=== PATIENT | female | born 1955 | race Two or more races ===

== ENCOUNTER 2023-09-14 16:28 | Emergency (ER) | payer OTHER, MEDICAID ==
[~2023-09-14] VITALS: Ht 157.5 cm; Wt 77.1 kg
[~2023-09-14 16:28] MED LIST: ASPI81CT95 PO; TEMA15CA24 PO; [UNRECOGNIZED DRUG - CODE] PO
[2023-09-14 16:59] VITALS: BP 146/76; PULSE 89; RESP 18; TEMP 97.5; O2SAT 97
[2023-09-14] MEDS ORDERED: HYDROcodone/APAP 10/325 MG 1 TAB TAB PO STA (17:24)
[2023-09-14] MEDS ORDERED: KETOROLAC 30 MG/ML VIAL IM ONE (17:25)
[2023-09-14 18:19] VITALS: BP 146/76; PULSE 89; RESP 18; TEMP 97.5; O2SAT 97
== END 2023-09-14 18:19 | disposition home or self-care (01) ==
LOC: MED 16:28
DX: M54.50 Low back pain, unspecified (principal); I10 Essential (primary) hypertension; Z79.899 Other long term (current) drug therapy
CPT/HCPCS: 96372; 99283; J1885